=== PATIENT | female | born 1945 | race Caucasian/White ===

== ENCOUNTER 2016-07-31 17:33 | Emergency (ER) | payer OTHER ==
--- NOTE | 2016-07-31 19:22 | DIAGNOSTIC IMAGING REPORT ---
PROCEDURE: CT HEAD WITHOUT CONTRAST INDICATION: Altered mental status, initial encounter TECHNIQUE: Noncontrast axial images with sagittal and coronal reformations. COMPARISON: None. FINDINGS: Mild atrophy and minor white matter chronic ischemic changes. Normal ventricular system. No evidence of acute intracranial process. Visualized mastoids and sinuses are clear. IMPRESSION: 1. No acute intracranial abnormality 2. Mild atrophy and minor white matter chronic ischemic changes 3. Results discussed with Dr. Griffin at 07:20 p.m., [facility] Time
--- NOTE | 2016-07-31 20:40 | DIAGNOSTIC IMAGING REPORT ---
PROCEDURE: XR CHEST 1 VIEW INDICATION: SHORTNESS OF BREATH, initial encounter TECHNIQUE: Portable AP view 06:15 p.m. COMPARISON: None. FINDINGS: Lungs are clear. Heart and mediastinum are normal. Old right third rib fracture. IMPRESSION: 1. Negative chest.
--- NOTE | 2016-07-31 20:54 | ED ORDER SUMMARY ---
..... Patient: BARNEY PIERRE OrderSheet [facility] VisitID: [id number] [address] [place] [address] 71y, F Registration Date/Time: 07/31/2016 ORDER SHEET Weight: 86.1 kg (stated) Allergies: No Known Drug Allergy GENERAL ORDERS: Surgical Pathologist (Continuous) (17:48 07/31/2016 PHutchinson DO) (17:54 KWilliams R.N.) (17:54 RKaruga) Chest 1V Urgent (17:48 07/31/2016 PHutchinson DO) (Ack 17:54 LTapper) (18:21 KWilliams R.N.) UA-Culture if indicated Urgent (17:49 07/31/2016 PHutchinson DO) (Ack 17:54 LTapper) (18:02 KWilliams R.N.) Cardiac Panel Stat (17:49 07/31/2016 PHutchinson DO) (17:54 RKaruga) (Ack 17:54 LTapper) BNP Urgent (17:49 07/31/2016 PHutchinson DO) (Ack 17:54 LTapper) (18:02 KWilliams R.N.) Amylase Urgent (17:49 07/31/2016 PHutchinson DO) (Ack 17:54 LTapper) (18:02 KWilliams R.N.) PT with INR Urgent (17:49 07/31/2016 PHutchinson DO) (Ack 17:54 LTapper) (18:02 KWilliams R.N.) TSH Urgent (17:49 07/31/2016 PHutchinson DO) (Ack 17:54 LTapper) (18:02 KWilliams R.N.) Lipase Urgent (17:49 07/31/2016 PHutchinson DO) (Ack 17:54 LTapper) (18:02 KWilliams R.N.) Urine Drug Screen Urgent (17:49 07/31/2016 PHutchinson DO) (Ack 17:54 LTapper) (18:02 KWilliams R.N.) Oxygen (2 L/min) (NC) (17:49 07/31/2016 [facility]) (17:54 KWilliams R.N.) Pulse oximeter (17:49 07/31/2016 [facility] DO) (18:02 KWilliams R.N.) EKG - ER Stat (17:49 07/31/2016 [facility]) (Ack 17:53 LTapper) (18:02 KWilliams R.N.) Vitals (17:49 07/31/2016 [facility]) (Ack 17:55 LTapper) (18:02 KWilliams R.N.) CT Head wo Cont Urgent (18:50 07/31/2016 [facility]) (19:06 RFay) MEDICATION ORDERS: IV FLUIDS: IV NS : initial bolus 500 mL (1000 mL/hr), then 250 mL/hr for X2 (NOW) (17:48 07/31/2016 [facility]) (18:04 KWilliams R.N.) ORDER SHEET NOTES: [Electronically signed by Andre Griffin DO (21:39 07/31/2016)] [Electronically signed by Tangela Turner (21:44 07/31/2016)] [Electronically locked/signed by Tangela Turner (21:44 07/31/2016)]
--- NOTE | 2016-07-31 20:54 | ED CLINICAL REPORT ---
Clinical Report - Physicians/Mid Levels [facility] [address] [place] [address] 07/31/2016 17:35 Patient: BARNEY PIERRE Time Seen: 17:47. Arrived- By private vehicle. Historian- patient and family. HISTORY OF PRESENT ILLNESS Chief Complaint: CONFUSION. This started today about 4 - 5 hours ago and is still present. It was gradual in onset and has been waxing/waning. The patient has been confused. (last known well per is 08:30 am today). No history of chronic dementia. No alcohol recently or recent drug use. No weakness or numbness. No difficulty walking. She has had a recent fall (possible - she denies any injury / pain, but says she "broke a chair" and feels she fell from the chair). Usually is alert and oriented X3 and usually has normal mobility. Similar symptoms previously: None. Recent medical care: Not recently seen/assessed. REVIEW OF SYSTEMS No fever, headache, head injury, dizziness or chest pain. No difficulty breathing, sore throat, abdominal pain, nausea or diarrhea. No black stools, difficulty with urination, skin rash, joint pain or vomiting. No bloody stools or back pain. The patient has had a mild cough (mostly at night). All systems otherwise negative, except as recorded above. PAST HISTORY Negative. See nurses notes. ( PCP: [facility]). No history of stroke, seizure, cirrhosis, hypertension or diabetes mellitus. Problems: no known problems. Surgeries: Appendectomy. Tubal ligation. Medications: Aspirin Oral. Allergies: No Known Drug Allergy. SOCIAL HISTORY Never smoker. No alcohol use or drug use. ADDITIONAL NOTES The nursing notes have been reviewed. PHYSICAL EXAM Vital Signs: 07/31/2016 17:42 BP: 153/90. HR: 60. RR: 19. O2 saturation: 99%. Temp: 97.5 F. Appearance: Alert. Patient in mild distress. Odor of alcohol is not present. Speech is not slurred. Head: Head atraumatic. Eyes: Pupils equal, round and reactive to light. ENT: Normal ENT inspection. Airway intact. Moist mucous membranes. Pharynx normal. Neck: Normal inspection. Neck supple. No meningeal signs or carotid bruit. CVS: Normal heart rate and rhythm. Heart sounds normal. Pulses normal. Respiratory: No respiratory distress. Breath sounds normal. Abdomen: Soft and nontender. Back: Normal inspection. Skin: No cyanosis. Skin warm and dry. No pallor. Normal skin color. Normal skin turgor. No diaphoresis. Extremities: Extremities exhibit normal ROM. No calf tenderness. No lower extremity edema. Neuro: Alert. The patient is disoriented to time (knows day and month, but unsure of year). Alertness is not decreased. Mood/affect normal. Speech normal. Cranial nerves normal (as tested). No cerebellar findings. No motor deficit. No sensory deficit. Reflexes normal. Reflex exam: right biceps 2+, left biceps 2+, right patellar 2+, left patellar 2+, right Achilles 0 and left Achilles 0. LABS, X-RAYS, AND EKG EKG: EKG time: (18:08). Narrow-complex bradycardia (ventricular rate 55). Sinus bradycardia. Normal P waves. Normal YOUSUF. Normal QRS complex. Normal axis. Normal ST and T waves. The study has been interpreted contemporaneously by me. The EKG appears to be a good tracing. Rhythm Strip #1: Normal sinus rhythm. Regular rhythm. Narrow QRS complexes. No ectopy. Chest X-ray: No acute disease. Normal lung markings present. Normal heart size. Mediastinum normal. Great vessels normal. No infiltrate. No bony lesion present. Views: AP (portable). Technique: good. The X-rays were interpreted contemporaneously by me. CT Head: Normal study. No acute changes. No hemorrhage. Head CT performed without contrast. The study was independently viewed by me, interpreted by the radiologist and discussed with the radiologist. Laboratory Tests: UA-Culture if indicated: (ARMIN: 07/31/2016 17:48) ( MsgRcvd 07/31/2016 18:10) Final results Test Result Flag Units (Reference) URINE COLOR YELLOW URINE APPEARANCE CLEAR URINE GLUCOSE NEGATIVE (NEGATIVE) URINE BILIRUBIN NEGATIVE (NEGATIVE) URINE KETONE NEGATIVE (NEGATIVE) URINE SPECIFIC GRAVITY 1.015 (1.010-1.030) URINE PH 5.5 (5.0-8.0) URINE PROTEIN NEGATIVE (NEGATIVE) URINE UROBILINOGEN 0.2 EU/dL (0.2-1.0) URINE NITRITE NEGATIVE (NEGATIVE) URINE BLOOD 1+ (NEGATIVE) URINE LEUK ESTERASE NEGATIVE (NEGATIVE) URINE RBC 0-1 rbc/hpf (0-1) URINE WBC 0-1 wbc/hpf (0-1) URINE EPITHELIAL CELLS 0-1 EPI/hpf (0-5) URINE BACTERIA NONE SEEN (NONE SEEN) URINE COMMENT CULT NOT INDICATED URINE CULTURES ARE SET-UP BASED ON THE FOLLOWING CRITERIA:POSITIVE NITRITEPOSITIVE LEUKOCYTE ESTERASEGREATER THAN 10 WHITE BLOOD CELLSMODERATE (2+) OR GREATER BACTERIA CBC w Diff: (ARMIN: 07/31/2016 17:58) ( MsgRcvd 07/31/2016 18:11) Final results Test Result Flag Units (Reference) WHITE BLOOD COUNT 6.2 K/uL (4.5-11.5) RED BLOOD COUNT 5.14 M/uL (4.00-5.20) HEMOGLOBIN 14.8 gm/dL (12.0-16.0) HEMATOCRIT 44.5 % (36.0-46.0) MEAN CELL VOLUME 87 fL (80-100) MEAN CORPUSCULAR HGB 29 pg (26-34) MEAN CORPUSCULAR HGB CONC 33 g/dL (31-37) RED CELL DISTRIBUTION WIDTH 15.4 H % (11.6-14.8) PLATELET COUNT 273 K/uL (150-400) NEUTROPHIL % 69.9 % (50-75) LYMPH % 18.1 L % (25-40) MONO % 10.0 % (3-14) EOSINOPHIL % 1.2 % (0-4) BASOPHIL % 0.8 % (0-2) PT with INR: (ARMIN: 07/31/2016 17:58) ( MsgRcvd 07/31/2016 18:21) Final results Test Result Flag Units (Reference) INR 0.9 (0.8-1.2) Low Intensity Therapy: INR 1.5-2.0 PT range 18.5-23.1Mod.Intensity Therapy: INR 2.0-3.0 PT range 23.1-31.5High Intensity Therapy: INR 2.5-3.5 PT range 27.4-35.5High Intensity Therapy 2: INR 3.0-4.0 PT range 31.5-39.3 Urine Drug Screen: (ARMIN: 07/31/2016 17:48) ( [facility] 07/31/[facility] 18:31) Final results Test Result Flag Units (Reference) AMPHETAMINE/METHAMPHETAMINE NEGATIVE (NEGATIVE) BARBITURATE NEGATIVE (NEGATIVE) BENZODIAZEPINE NEGATIVE (NEGATIVE) CANNABINOID NEGATIVE (NEGATIVE) COCAINE NEGATIVE (NEGATIVE) ECSTASY NEGATIVE (NEGATIVE) METHADONE NEGATIVE (NEGATIVE) OPIATE NEGATIVE (NEGATIVE) The urine drug screen is a qualitative screening test fordrug overdose and abuse. All screen results should beconsidered as presumptive.Drugs screened for are as follows:BenzodiazepinesCocaineAmphetamines/MetamphetaminesTHC (Tetrahydrocannabinol)OpiatesBarbituratesEcstasyMethadonePositive results are unconfirmed. For confirmation, notifythe lab for the specimen to be sent to the reference lab.All confirmations must be performed by a differentmethodology.The ingestion of natural herbal and plant productscontaining Ephedra/Ephedra metabolites can produce in urineone or more substances capable of cross reacting withamphetamine/methamphetamine immunoassays. These testsprovide a preliminary result only. A more specificalternative chemical method must be used to obtain aconfirmed analytical result. BNP: (ARMIN: 07/31/2016 17:58) ( [facility] 07/31/2016 18:32) Final results Test Result Flag Units (Reference) B-TYPE NATRIURETIC PEPTIDE 118 H pg/ml (5-100) Lipase: (ARMIN: 07/31/2016 17:58) ( [facility] 07/31/2016 18:36) Final results Test Result Flag Units (Reference) LIPASE 319 U/L (73-393) AMYLASE 71 U/L (25-115) THYROID STIMULATING HORMONE 3.949 H uIU/mL (0.30-3.74) CHEM 13 PANEL: (ARMIN: 07/31/2016 17:58) ( MsgRcvd 07/31/2016 18:31) Final results Test Result Flag Units (Reference) GLUCOSE 96 mg/dL (70-110) BUN 19 H mg/dL (7-18) CREATININE 0.6 mg/dL (0.6-1.3) Estimated GFR >60 mL/min Estimated GFR- >60 mL/min Note: Persistent reduction over 3 months in eGFR<60 mL/min/1.73 m2 defines CKD. Patients with eGFR values>=60 mL/min/1.73 m2 may also have CKD if evidence ofpersistent proteinuria. Additional information may be foundat www.kidney.org. SODIUM 143 mmol/L (136-145) POTASSIUM 4.0 mmol/L (3.5-5.1) CHLORIDE 107 mmol/L (98-107) CARBON DIOXIDE 27 mmol/L (21-32) CALCIUM 9.2 mg/dL (8.5-10.1) TOTAL PROTEIN 7.4 g/dL (6.4-8.2) ALBUMIN 4.1 g/dL (3.3-5.0) BILIRUBIN, TOTAL 0.4 mg/dL (0.0-1.0) ALKALINE PHOSPHATASE 85 U/L (46-116) AST (SGOT) 20 U/L (15-37) ALT (SGPT) 31 U/L (12-78) MAGNESIUM 2.2 mg/dL (1.8-2.4) CPK 191 U/L (24-260) TROPONIN I <0.05 ng/mL (0.00-1.5) TROPONIN REFERENCE RANGE:<0.1 NEGATIVE0.1-1.5 INDETERMINANT>1.5 POSITIVE . Pulse Oximetry: 07/31/2016 17:42 O2 saturation: 99%. (FIO2 - room air). Interpretation: normal. PROGRESS AND PROCEDURES Course of Care: Normal Saline 1 liter IVPB given. Patient is stable. Physical exam findings are improved. Symptoms much better. Pt with transient confusion - lasted about 10 hours, but now feels essentially normal. Unclear etiology, but work up is unremarkable. Pt has good social support with her who will be with her tonight and tomorrow. Pt has good out pt follow up mechanisms in place - pcp with [facility] - case d/w Dr Weaver who will relay to the clinic provider as needed. Pt will return for new or worsening symptoms or any concerns. Discussed case with health care provider (Owen). Reviewed test results. Agreed upon treatment plan. Health care provider will see patient in office. Patient/family counseled. Disposition: Discharged. Condition: stable and improved. CLINICAL IMPRESSION Acute mental status change with confusion. Essential hypertension. Fall from chair (unclear if any injury). INSTRUCTIONS Rest. Drink plenty of fluids. Warnings: Further evaluation is necessary in order to recheck abnormal lab, obtain test results, conduct further tests and assess the possibility of serious illness. It is very important to follow up with a physician. GENERAL WARNINGS: Return or contact your physician immediately if your condition worsens or changes unexpectedly, if not improving as expected, or if other problems arise. Your Current Medications: CONTINUE TAKING THE FOLLOWING MEDICATIONS: Aspirin Oral. Follow-up: Screening today revealed the patient's blood pressure to be in the hypertensive range. The patient should follow up with a primary care provider for blood pressure management. Follow-up with: Katina Gonzalez MD, [facility], , [facility], [address] [place] [address] Follow up Tuesday in two days. (Electronically signed by Andre Griffin DO 07/31/2016 21:39)
--- NOTE | 2016-07-31 20:54 | ED NURSING NOTES ---
Clinical Report - Nurses [facility] [address] [place] [address] 07/31/2016 17:35 Patient: BARNEY PIERRE TRIAGE Triage time 17:35. Acuity: LEVEL 3. Chief Complaint: CONFUSED. 17:42 07/31/16. Alert. GRICELDA COMA SCORE: [place] Coma Scale: 14- eyes open spontaneously (4); best verbal response- disoriented (4); best motor response- obeys commands (6). --17:42 Sean Faye R.N. 17:42 07/31/16. BP: 153/90. HR: 60. RR: 19. O2 saturation: 99%. Temp: 97.5 F. Pain level now 0/10. --17:42 Sean Faye R.N. Weight: 86.1 kg stated. Height/Length: 68 inches Per Patient. BMI: 28.9. --17:39 Sean Faye R.N. Medications Aspirin Oral. --17:41 Sean Faye R.N. Allergies No Known Drug Allergy. --17:41 Sean Faye R.N. Medication/allergy information source: the patient and patient's spouse. --17:42 Sean Faye R.N. History ( Confusion starting about 1300 today per . states he previously saw her at her baseline about 0830 today. FAST exam negative in [place] by this RN, confusion present. Unable to state year or day.). This started today. Patient was last known well (0830 AM). Onset. (1300). Treatment HORTICULTURE SUPERINTENDENT: None. SOCIAL HX: Never smoker. No alcohol use or drug use. FALL RISK ASSESSMENT: Fall risk assessment completed. No fall risk identified. NUTRITIONAL RISK ASSESSMENT: The nutritional risk assessment revealed no deficiencies. FUNCTIONAL ASSESSMENT: Functional assessment: no impairments noted. LEARNING NEEDS ASSESSMENT: The learning needs assessment revealed no barriers. SKIN INTEGRITY ASSESSMENT: Skin integrity risk assessment completed. No skin integrity risk identified. --17:42 Sean Faye R.N. PROBLEMS: no known problems. ADDITIONAL SURGERIES: Tubal Ligation. --17:42 Sean Faye R.N. Appendectomy. --17:42 Sean Faye R.N. Interventions ID band on patient. To treatment room. --17:42 Sean Faye R.N. PHYSICAL ASSESSMENT 17:43 07/31/16. To room via wheelchair. GENERAL / NEURO / PSYCH: Alert. Appears in no acute distress. The patient is disoriented to time and situation. Speech within normal limits. Patient appears well-nourished and neat and clean. RESPIRATORY: Respirations not labored. CVS: Capillary refill less than 2 seconds. GI / : Abdomen soft and nontender. SKIN: Skin is warm and dry. Normal skin turgor. --17:43 Sean Faye R.N. NURSING PROGRESS NOTES 17:43 07/31/16. The plan of care for this patient has been created. preparing box tender, pulse oximeter and NIBP monitor placed on patient. Patient gowned. Head of bed elevated. Call light placed in reach. Bed placed in lowest position. Brakes of bed on. Patient ready for evaluation- chart flagged and ED physician notified. --17:43 Sean Faye R.N. Oxygen increased to 2 liters by nasal cannula. Assisted patient to bathroom, to stand, to ambulate and back to bed; tolerated well. Patient ID band checked for patient name and birthdate: patient confirmed. Instructions provided to collect clean catch urine and patient verbalized understanding. Clean catch urine collected with return of yellow-colored clear urine; odor is normal; sample sent to lab for urinalysis and culture. Specimen labeled in the presence of the patient. --18:02 Sean Faye R.N. 17:58 07/31/2016 Site #1 started via IV in the left antecubital space with an 20g angiocath, with aseptic technique and good blood return; one attempt. Blood drawn: rainbow set. Labeled in the presence of the patient and sent to the lab. Saline lock flushed with 10 mL saline. --18:03 Sean Faye R.N. 17:59 07/31/2016 Started bag #1 1000 mL IV Fluids IV NS (Saline); bolus of 500 mL over 30 minute(s) then at 250 mL/hr over 2 hour(s) via site #1. Allergies verified and confirmed 5 rights. IV patency established. IV site checked: no pain, redness, or swelling. IV flushed thoroughly pre- and post-medication administration. --18:04 Sean Faye R.N. EKG time: (18:08). EKG was performed by a tech and shown to the ED physician. --18:11 Tanna Downey 19:13 07/31/16. Care transferred and report given (Tangela Landry, EDRN). --19:13 Sean Faye R.N. 19:43 07/31/16. BP: 155/75. HR: 58. RR: 20. O2 saturation: 100% on room air. Pain level now: 0/10. --19:44 Tangela Turner ( Patient ambulated with assistance to restroom. She reports feeling a bit dizzy. Patient expresses that she cannot recall the events of tonight's visit at the hospital or why she is here. Patient returned to room and returned to monitor.). --19:45 Tangela Turner 19:45 07/31/2016 IV Fluids IV NS Discontinued: bag #1 completed. Total amount infused: 1000 mL. IV patency established. IV site checked: no pain, redness, or swelling. IV flushed thoroughly. --19:45 Tangela Turner ( Patient given PO fluids). --20:23 Tangela Turner. DISPOSITION / DISCHARGE 21:00 07/31/16. Condition at departure: stable. The goals identified in the patient's plan of care were met. No learning barriers present. Discharge instructions provided and reviewed. Patient and spouse verbalized understanding. Written instructions provided in Nepali. ( Follow up with PCP in two days. Return if symptoms worsen.). The patient was discharged by the physician. She was discharged home and accompanied by spouse. She left the Emergency Department ambulatory and via private vehicle. Spouse driving. FALL RISK ASSESSMENT: Fall risk assessment completed. No fall risk identified. --21:42 Tangela Turner 21:00 07/31/16. BP: 138/80. HR: 63. RR: 18. O2 saturation: 97% on room air. Temp: 98.8 F (oral). Pain level now: 0/10. --21:42 Tangela Turner 21:00 07/31/2016 Site #1 removed upon discharge. Catheter intact. Bandaid applied. --21:44 Tangela Turner. Locked/Released at 07/31/2016 21:44 by Tangela Turner,
--- NOTE | 2016-07-31 20:54 | ED ORDER SUMMARY ---
..... Patient: BARNEY PIERRE OrderSheet [facility] VisitID: [id number] [address] [place] [address] 71y, F Registration Date/Time: 07/31/2016 ORDER SHEET Weight: 86.1 kg (stated) Allergies: No Known Drug Allergy GENERAL ORDERS: Concrete Form Setter And Finisher (Continuous) (17:48 07/31/2016 PHutchinson DO) (17:54 KWilliams R.N.) (17:54 RKaruga) Chest 1V Urgent (17:48 07/31/2016 PHutchinson DO) (Ack 17:54 LTapper) (18:21 KWilliams R.N.) UA-Culture if indicated Urgent (17:49 07/31/2016 PHutchinson DO) (Ack 17:54 LTapper) (18:02 KWilliams R.N.) Cardiac Panel Stat (17:49 07/31/2016 PHutchinson DO) (17:54 RKaruga) (Ack 17:54 LTapper) BNP Urgent (17:49 07/31/2016 PHutchinson DO) (Ack 17:54 LTapper) (18:02 KWilliams R.N.) Amylase Urgent (17:49 07/31/2016 PHutchinson DO) (Ack 17:54 LTapper) (18:02 KWilliams R.N.) PT with INR Urgent (17:49 07/31/2016 PHutchinson DO) (Ack 17:54 LTapper) (18:02 KWilliams R.N.) TSH Urgent (17:49 07/31/2016 PHutchinson DO) (Ack 17:54 LTapper) (18:02 KWilliams R.N.) Lipase Urgent (17:49 07/31/2016 PHutchinson DO) (Ack 17:54 LTapper) (18:02 KWilliams R.N.) Urine Drug Screen Urgent (17:49 07/31/2016 PHutchinson DO) (Ack 17:54 LTapper) (18:02 KWilliams R.N.) Oxygen (2 L/min) (NC) (17:49 07/31/2016 [facility]) (17:54 KWilliams R.N.) Pulse oximeter (17:49 07/31/2016 [facility] DO) (18:02 KWilliams R.N.) EKG - ER Stat (17:49 07/31/2016 [facility]) (Ack 17:53 LTapper) (18:02 KWilliams R.N.) Vitals (17:49 07/31/2016 [facility]) (Ack 17:55 LTapper) (18:02 KWilliams R.N.) CT Head wo Cont Urgent (18:50 07/31/2016 [facility]) (19:06 RFay) MEDICATION ORDERS: IV FLUIDS: IV NS : initial bolus 500 mL (1000 mL/hr), then 250 mL/hr for X2 (NOW) (17:48 07/31/2016 [facility]) (18:04 KWilliams R.N.) ORDER SHEET NOTES: [Electronically signed by Andre Griffin DO (21:39 07/31/2016)] [Electronically signed by Tangela Turner (21:44 07/31/2016)] [Electronically locked/signed by Tangela Turner (21:44 07/31/2016)]
--- NOTE | 2016-07-31 21:44 | ED MED RECONCILIATION SUMMARY ---
Patient: BARNEY PIERRE Medication Reconciliation Report [facility] VisitID: [id number] [address] [place] [place] [address] 71y, F Registration Date/Time: 07/31/2016 Weight: 86.1 kg Height/Length: 68 in. BMI: 28.9 ALLERGIES: No Known Drug Allergy The patient's Home Medications are listed below: CONTINUE TAKING THE FOLLOWING MEDICATIONS: Aspirin Oral The source(s) of the original Home Medication information: patient patient's spouse The following Medications were given to the patient in the Emergency Department: IV NS IV Fluids bolus 500 mL over 30 minute(s), then 250 mL/hr, administered: 07/31/2016 5:59:00 PM The following Medications were prescribed to the patient: None.
--- NOTE | 2016-07-31 21:44 | ED MED RECONCILIATION SUMMARY ---
Patient: BARNEY PIERRE Medication Reconciliation Report [facility] VisitID: [id number] [address] [place] [address] 71y, F Registration Date/Time: 07/31/2016 Weight: 86.1 kg Height/Length: 68 in. BMI: 28.9 ALLERGIES: No Known Drug Allergy The patient's Home Medications are listed below: CONTINUE TAKING THE FOLLOWING MEDICATIONS: Aspirin Oral The source(s) of the original Home Medication information: patient patient's spouse The following Medications were given to the patient in the Emergency Department: IV NS IV Fluids bolus 500 mL over 30 minute(s), then 250 mL/hr, administered: 07/31/2016 5:59:00 PM The following Medications were prescribed to the patient: None.
--- NOTE | 2016-07-31 21:44 | ED MAR SUMMARY ---
..... Medication Administration Record [facility] [address] [place] [address] Patient: BARNEY PIERRE Visit ID: [id number] 71y, F Weight: 86.1 kg Height/Length: 68 in BMI: 28.9 ALLERGIES: No Known Drug Allergy Start 17:59 07/31/2016 Sean Faye R.N., Stop 19:45 07/31/2016 Tangela Turner, Medication Administered: IV NS (SALINE), Dose: IV Fluids over 2 hour(s), Rate: 250 mL/hr, Bolus: 500 mL over 30 minute(s), Dispensed: 1000 mL bag, Site: #1 left . Medication Ordered: IV NS : initial bolus 500 mL (1000 mL/hr), then 250 mL/hr for X2 (NOW).
--- NOTE | 2016-07-31 21:44 | ED DISCHARGE INSTRUCTIONS ---
Patient: BARNEY PIERRE General Instructions [facility] VisitID: [id number] [address] [place] [address] 71y, F Registration Date/Time: 07/31/2016 Acute mental status change with confusion. Essential hypertension. Fall from chair (unclear if any injury). INSTRUCTIONS Rest. Drink plenty of fluids. Warnings: Further evaluation is necessary in order to recheck abnormal lab, obtain test results, conduct further tests and assess the possibility of serious illness. It is very important to follow up with a physician. GENERAL WARNINGS: Return or contact your physician immediately if your condition worsens or changes unexpectedly, if not improving as expected, or if other problems arise. Your Current Medications: CONTINUE TAKING THE FOLLOWING MEDICATIONS: Aspirin Oral. Follow-up: Screening today revealed the patient's blood pressure to be in the hypertensive range. The patient should follow up with a primary care provider for blood pressure management. Follow-up with: Katina Gonzalez MD, [facility], , [facility], [address] [place] [address] Follow up Tuesday in two days. ADDITIONAL INFORMATION Confusion Confusion is a change in a persons ability to think clearly. There may be trouble recognizing familiar people and places, or knowing what day it is. Memory, judgement and decision-making may also be affected. In severe cases there may be limited or no response to verbal commands. Confusion may occur suddenly or develop gradually over time. There are many injuries and medical conditions that can cause this problem. These include brain injury, side effect of medication, intoxication, withdrawal from drugs, infection, stroke, dementia,mental illness and other causes. The exam and testing today did not show the cause of this problem. Further testing will be needed. Specific treatment and hope for recovery depend on the cause of this symptom. Home Care: Be sure someone is with the confused person at all times. He/she should not be left alone or unsupervised. Keep medicines (prescription and [id number]) in a secure place, under the caregivers control. A person with confusion should not be allowed to take their own medicines.This needs to be supervised by the caregiver. Ways to help a person with confusion: Activities:Establish a daily routine. Change can be a source of stress for someone with confusion. Make a time schedule for common tasks such as: bathing, dressing, taking medicines, meals, going for walks, shopping, naps and bed time. Communication:Speak slowly and clearly with a gentle tone of voice. Use short simple words and sentences. Ask one question at a time. Do not interrupt, criticize or argue. Be calm and supportive. Use friendly facial expressions. Use pointing and touching to help communicate. If there has been loss of long-term memory, do not ask questions about past events. This would only cause frustration for the person. Behavioral tips:Use lists, signs, family photos, clocks and calendars as memory aids. Label cabinets and drawers. Try to distract, not confront, the patient. When he/she becomes frustrated or upset, redirect his/her attention to eating or some other activity of interest. Medical-Legal tips: If this proves to be a permanent condition, talk to your doctor and/or civil lawyer about getting a Power of Presales Engineer for health care and for financial decisions. It is best to do this while the person can still sign legal documents and make his/brent own legal decisions. Otherwise, a court order will be required. Follow-Up with the patients doctor or as advised by our staff for further testing. Get Prompt Medical Attention if any of the following occur: Frequent falling Refusal to eat or drink Violent behavior or behavior becomes too difficult to manage at home Increased drowsiness, or failure to respond normally Increasing headache, nausea or repeated vomiting Numbness or weakness of the face, one arm or one leg Slurred speech, trouble speaking, walking or seeing Fainting spell, dizziness or seizure Unexplained fever over 100.4 F (38.0 C) oral High Blood Pressure -- To Be Confirmed [No Tx] Your blood pressure was higher today than normal. Sometimes anxiety or pain can cause a temporary rise in blood pressure that later returns to normal. If your blood pressure is high on one measurement, this does not mean that you have hypertension (a chronic illness). However, you must have your blood pressure measured again within the next few days to find out if its still high. A normal blood pressure is 120/80 or less. The first (top) number is the "systolic" pressure. The second (bottom) number is the "diastolic" pressure. Hypertension exists when either the top number is 140 or higher, OR the bottom number is 90 or higher on repeated measurements. Blood pressure in the range of 120-140 (systolic) or 80-89 (diastolic) is considered "pre-hypertension". This means your are at risk for getting hypertension. You should have regular blood pressure checks to be sure your blood pressure is not rising. Home Care: Measure your blood pressure on 3 different days and write down the results. This can be done at your doctor's office or this facility. Some pharmacies and grocery stores offer automated blood pressure machines for your use. Follow Up: If your blood pressure is "high" (over 120/80) on 2 out of 3 days, you will need to follow up with your doctor for further evaluation and treatment. DO NOT PUT THIS OFF! Untreated high blood pressure increases the risk for heart attack, also known as acute myocardial infarction, or AMI, and stroke. It is a treatable condition. Get Prompt Medical Attention if any of the following occur: Chest pain or shortness of breath Severe headache Throbbing or rushing sound in the ears Nosebleed Sudden severe abdominal pain Extreme drowsiness, confusion or fainting Dizziness or vertigo (dizziness with spinning sensation) Weakness of an arm or leg or one side of the face Difficulty with speech or vision You have been given the following additional information: Confusion Hypertension, To Be Confirmed Rest. (Electronically signed by Andre Griffin DO 07/31/2016 21:39)
--- NOTE | 2016-07-31 21:44 | ED MAR SUMMARY ---
..... Medication Administration Record [facility] [address] [place] [address] Patient: BARNEY PIERRE Visit ID: [id number] 71y, F Weight: 86.1 kg Height/Length: 68 in BMI: 28.9 ALLERGIES: No Known Drug Allergy Start 17:59 07/31/2016 Sean Faye R.N., Stop 19:45 07/31/2016 Tangela Turner, Medication Administered: IV NS (SALINE), Dose: IV Fluids over 2 hour(s), Rate: 250 mL/hr, Bolus: 500 mL over 30 minute(s), Dispensed: 1000 mL bag, Site: #1 left . Medication Ordered: IV NS : initial bolus 500 mL (1000 mL/hr), then 250 mL/hr for X2 (NOW).
--- NOTE | 2016-07-31 21:44 | ED DISCHARGE INSTRUCTIONS ---
Patient: BARNEY PIERRE General Instructions [facility] VisitID: [id number] [address] [place] [address] 71y, F Registration Date/Time: 07/31/2016 Acute mental status change with confusion. Essential hypertension. Fall from chair (unclear if any injury). INSTRUCTIONS Rest. Drink plenty of fluids. Warnings: Further evaluation is necessary in order to recheck abnormal lab, obtain test results, conduct further tests and assess the possibility of serious illness. It is very important to follow up with a physician. GENERAL WARNINGS: Return or contact your physician immediately if your condition worsens or changes unexpectedly, if not improving as expected, or if other problems arise. Your Current Medications: CONTINUE TAKING THE FOLLOWING MEDICATIONS: Aspirin Oral. Follow-up: Screening today revealed the patient's blood pressure to be in the hypertensive range. The patient should follow up with a primary care provider for blood pressure management. Follow-up with: Katina Gonzalez MD, [facility], , [facility], [address] [place] [address] Follow up Tuesday in two days. ADDITIONAL INFORMATION Confusion Confusion is a change in a persons ability to think clearly. There may be trouble recognizing familiar people and places, or knowing what day it is. Memory, judgement and decision-making may also be affected. In severe cases there may be limited or no response to verbal commands. Confusion may occur suddenly or develop gradually over time. There are many injuries and medical conditions that can cause this problem. These include brain injury, side effect of medication, intoxication, withdrawal from drugs, infection, stroke, dementia,mental illness and other causes. The exam and testing today did not show the cause of this problem. Further testing will be needed. Specific treatment and hope for recovery depend on the cause of this symptom. Home Care: Be sure someone is with the confused person at all times. He/she should not be left alone or unsupervised. Keep medicines (prescription and abtf-xbv-[id number]) in a secure place, under the caregivers control. A person with confusion should not be allowed to take their own medicines.This needs to be supervised by the caregiver. Ways to help a person with confusion: Activities:Establish a daily routine. Change can be a source of stress for someone with confusion. Make a time schedule for common tasks such as: bathing, dressing, taking medicines, meals, going for walks, shopping, naps and bed time. Communication:Speak slowly and clearly with a gentle tone of voice. Use short simple words and sentences. Ask one question at a time. Do not interrupt, criticize or argue. Be calm and supportive. Use friendly facial expressions. Use pointing and touching to help communicate. If there has been loss of long-term memory, do not ask questions about past events. This would only cause frustration for the person. Behavioral tips:Use lists, signs, family photos, clocks and calendars as memory aids. Label cabinets and drawers. Try to distract, not confront, the patient. When he/she becomes frustrated or upset, redirect his/her attention to eating or some other activity of interest. Medical-Legal tips: If this proves to be a permanent condition, talk to your doctor and/or community liaison about getting a Power of Ampoule Filler [employer] Sealer for health care and for financial decisions. It is best to do this while the person can still sign legal documents and make his/brent own legal decisions. Otherwise, a court order will be required. Follow-Up with the patients doctor or as advised by our staff for further testing. Get Prompt Medical Attention if any of the following occur: Frequent falling Refusal to eat or drink Violent behavior or behavior becomes too difficult to manage at home Increased drowsiness, or failure to respond normally Increasing headache, nausea or repeated vomiting Numbness or weakness of the face, one arm or one leg Slurred speech, trouble speaking, walking or seeing Fainting spell, dizziness or seizure Unexplained fever over 100.4 F (38.0 C) oral High Blood Pressure -- To Be Confirmed [No Tx] Your blood pressure was higher today than normal. Sometimes anxiety or pain can cause a temporary rise in blood pressure that later returns to normal. If your blood pressure is high on one measurement, this does not mean that you have hypertension (a chronic illness). However, you must have your blood pressure measured again within the next few days to find out if its still high. A normal blood pressure is 120/80 or less. The first (top) number is the "systolic" pressure. The second (bottom) number is the "diastolic" pressure. Hypertension exists when either the top number is 140 or higher, OR the bottom number is 90 or higher on repeated measurements. Blood pressure in the range of 120-140 (systolic) or 80-89 (diastolic) is considered "pre-hypertension". This means your are at risk for getting hypertension. You should have regular blood pressure checks to be sure your blood pressure is not rising. Home Care: Measure your blood pressure on 3 different days and write down the results. This can be done at your doctor's office or this facility. Some pharmacies and grocery stores offer automated blood pressure machines for your use. Follow Up: If your blood pressure is "high" (over 120/80) on 2 out of 3 days, you will need to follow up with your doctor for further evaluation and treatment. DO NOT PUT THIS OFF! Untreated high blood pressure increases the risk for heart attack, also known as acute myocardial infarction, or AMI, and stroke. It is a treatable condition. Get Prompt Medical Attention if any of the following occur: Chest pain or shortness of breath Severe headache Throbbing or rushing sound in the ears Nosebleed Sudden severe abdominal pain Extreme drowsiness, confusion or fainting Dizziness or vertigo (dizziness with spinning sensation) Weakness of an arm or leg or one side of the face Difficulty with speech or vision You have been given the following additional information: Confusion Hypertension, To Be Confirmed Rest. (Electronically signed by Andre Griffin DO 07/31/2016 21:39)
== END 2016-07-31 21:00 | disposition home or self-care (01) ==
LOC: ED SRH 17:33
DX: R41.82 Altered mental status, unspecified (principal); R41.0 Disorientation, unspecified; I10 Essential (primary) hypertension; W07.XXXA Fall from chair, initial encounter; Y93.9 Activity, unspecified; Y92.9 Unspecified place or not applicable; Y99.9 Unspecified external cause status; Z79.82 Long term (current) use of aspirin
CPT/HCPCS: 90004; 90100; 90616; 91320; 92235; 92530; 92610; 92720; 92760; 92761; 92762; 92763; 92764; 92765; 92766; 92767; 93140; 94060; 95059

== ENCOUNTER 2016-08-19 10:19 | Outpatient (CLI) | payer OTHER ==
--- NOTE | 2016-08-19 14:01 | DIAGNOSTIC IMAGING REPORT ---
PROCEDURE: MG BILATERAL SCREENING W/CAD INDICATION: Screening. Family history breast carcinoma (sister, aunts). TECHNIQUE: Bilateral CC and MLO digital views. COMPARISON: Compared to 05/21/2015, 05/17/2012, 10/22/2010, 08/12/2009, and 07/30/2008. FINDINGS: Computer-aided detection applied. Moderately dense. No change. IMPRESSION: 1. Negative mammogram RESULT CODE: 1- Negative. A. A negative report should not delay biopsy if a dominant or clinically suspicious mass is present. 10-15% of cancers are not identified by x-ray. B. A negative report may reinforce clinical impression. C. Adenosis and dense breasts may obscure an underlying neoplasm. D. False positive reports average 6-10%. E.. A yearly screening mammogram is recommended. A reminder letter will be scheduled.
== END 2016-08-19 23:00 ==
LOC: MAM SRH 10:19
DX: Z12.31 Encounter for screening mammogram for malignant neoplasm of breast (principal); Z80.3 Family history of malignant neoplasm of breast